=== PATIENT | male | born 1940 | race Caucasian/White ===

== ENCOUNTER 2019-04-26 02:26 | Inpatient (IN) | payer MEDICARE, BC ==
[~2019-04-26] VITALS: Ht 175.3 cm; Wt 102.1 kg
[2019-04-26 02:36] VITALS: BP 179/97
[2019-04-26] MEDS ORDERED: ASA81BEC PO (02:45)
[2019-04-26] MEDS ORDERED: CLOPIDOGREL75 MG PO (02:46)
[2019-04-26] MEDS ORDERED: FLOMAX0.4 MG PO (02:46)
[2019-04-26] MEDS ORDERED: CARVEDILOL25 MG PO (02:46)
[2019-04-26] MEDS ORDERED: LIPITOR40 MG PO (02:47)
[2019-04-26] MEDS ORDERED: CENTRUM SILVER1 EAC2 PO (02:47)
[2019-04-26 02:52] LABS: URINE BILIRUBIN NEGATIVE (Negative); URINE BLOOD NEGATIVE (Negative); URINE CLARITY CLEAR; URINE COLOR YELLOW; URINE GLUCOSE-RANDOM NEGATIVE (Negative); URINE KETONES NEGATIVE (Negative); URINE LEUKOCYTES-REFLEX NEGATIVE (Negative); URINE NITRITE-REFLEX NEGATIVE (Negative); URINE PROTEIN NEGATIVE (Negative); URINE UROBILINOGEN 0.2 E.U./dl (0.2-1.0)
[2019-04-26 02:52] LABS: ABSOLUTE EOSINOPHILS 0.2 thou/uL (0.0-0.7); ABSOLUTE LYMPHOCYTES 1.1 thou/uL (0.8-5.3); ABSOLUTE MONOCYTES 0.9 thou/uL (0.0-1.2); ABSOLUTE NEUTROPHILS 8.9 thou/uL (1.6-8.1); BASOPHILS 0.4 %; EOSINOPHILS 1.8 %; HEMATOCRIT 41.6 % (42.0-52.0); LYMPHOCYTES 9.7 %; MCH 29.8 pg (26.0-34.0); MCHC 33.7 g/dL (28.0-37.0); MCV 88.4 fL (80.0-100.0); MONOCYTES 8.5 %; MPV 9.1 fl. (7.2-11.1); NUCLEATED RBCS 0 /100WBC; PLATELET COUNT* 199 thou/uL (150-400); POLYS 79.6 %; RDW-CV 14.7 % (10.5-14.5); WBC 11.2 thou/uL (4.0-11.0)
[2019-04-26 03:01] LABS: CALCIUM 7.8 mg/dL (8.5-10.1); CREATININE 1.5 mg/dL (0.6-1.3); INR 1.1; POTASSIUM 4.1 mmol/L (3.5-5.1); PROTIME 11.6 Seconds (9.20-11.50)
[2019-04-26 03:05] LABS: ALBUMIN 2.7 g/dL (3.4-5.0); TOTAL BILIRUBIN 0.5 mg/dL (<0.1-1.0); TOTAL PROTEIN 6.9 g/dL (6.4-8.2)
[2019-04-26 07:43] VITALS: BP 163/95
[2019-04-26 09:23] VITALS: BP 168/111
[2019-04-26 10:53] LABS: CHOLESTEROL 133 mg/dL (<200); HDL CHOLESTEROL 32 mg/dL (>40); LDL CHOLESTEROL 91 mg/dL (<100); TC:HDL 4.2 Ratio (Not establshd); TRIGLYCERIDE 54 mg/dL (<150); VLDL 11 mg/dL (<40)
[2019-04-26 10:54] LABS: SERUM ASSESSMENT Clear
--- NOTE | 2019-04-26 14:00 | NUR ---
PT.SLEEPING SOUNDLY AFTER HAVING PAIN MEDS. DID NOT AWAKEN. CM WILL SEE TOMORROW.
[2019-04-26 15:32] VITALS: BP 168/111
--- NOTE | 2019-04-26 17:19 | EKG ---
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
--- NOTE | 2019-04-26 17:31 | EKG ---
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1940 Requested By: Haritha Abbott Order Number: [id number] MD: Arthur Jeffries Measurements Intervals [place] Rate: 96 P: 54 MS: 220 QRS: 14 QRSD: 110 T: -30 QT: 367 QTc: 464 Interpretive Statements Sinus rhythm Sinus pause Prolonged MS interval Inferior infarct, age indeterminate No previous ECG available for comparison Electronically Signed On 04-26-2019 17:30:46 FASTENER SEWING MACHINE OPERATOR by Arthur Jeffries [email or web address] <ELECTRONICALLY SIGNED> By: Arthur Jeffries MD, [facility] 04/26/19 1730 1139 1139 Arthur Jeffries MD, FAC /EPI
[2019-04-26 20:20] VITALS: BP 105/62
--- NOTE | 2019-04-26 20:21 | NUR ---
PATIENT ARRIVED TO UNIT AT APPROX 0740. ALERT AND ORIENTED X4. ADMISSION HISTORY AND ASSESSMENT COMPLETED AND CHARTED. VSS ON ROOM AIR. CHIEF COMPLAINT OF ABDOMINAL PAIN. NO COMPLAINTS OF NAUSEA. PATIENTS VERY FOCUSED ON THE PATIENTS PAIN, VISITED THE DESK NUMEROUS TIMES AND WENT INTO OTHER PAATIENTS ROOMS LOOKING FOR STAFF BEFORE I COULD GET INTO THE ROOM TO SEE THE PATIENT. EDUCATED THE PATIENTS THAT I CANNOT GIVE PAIN MEDICATION BASED ON HER PAIN ASSESSMENT, THE PATIENT HAS TO BE THE ONE TO CALL ME AND ASK FOR PAIN MEDICATION. EDUCATED THE PATIENT AND HIS ON HOW TO USE THE CALL LIGHT AND CALL FROM THE ROOM, RATHER THAN COMING UP TO THE DESK AND LOOKING IN OTHER PATIENTS ROOMS. PATIENTS SONS ARRIVED THIS AFTERNOON AND WERE UPDATED ON THE PLAN OF CARE. PATIENTS PAIN MANAGED WITH IV MORPHINE. FLUIDS INFUSED ORDERED. PATIENT UP AD VANNA IN THE ROOOM AND USING THE BATHROOM TO VOID. CALL LIGHT WITHIN REACH. HOURLY ROUNDS COMPLETED. NURSING WILL CONTINUE TO MONITOR.
[2019-04-27 04:39] LABS: HEMATOCRIT 39.5 % (42.0-52.0); MCH 29.3 pg (26.0-34.0); MCV 88.9 fL (80.0-100.0); MPV 9.7 fl. (7.2-11.1); RBC 4.45 mil/uL (4.50-6.00); RDW-CV 14.6 % (10.5-14.5); WBC 19.7 thou/uL (4.0-11.0)
[2019-04-27 05:07] LABS: CALCIUM 7.8 mg/dL (8.5-10.1); CREATININE 1.9 mg/dL (0.6-1.3); POTASSIUM 4.7 mmol/L (3.5-5.1)
--- NOTE | 2019-04-27 08:00 | NUR ---
PATIENT HAS SLEPT WELL THROUGHOUT THE NIGHT. VSS ON RA, ALTHOUGH SLIGHTLY ELEVATED TEMPERATURE. NOTIFIED OF SLIGHT ELEVATION IN TEMP. PATIENT UNDER COVERS AND ROOM WARM. PATIENT STATED HE FELT FINE AND DECLINED NEEDING TYLENOL. NO C/O PAIN DURING THE SHIFT. PATIENT STATED HE HAS HAD NO NAUSEA AND DECLINED NEEDING NAUSEA MEDICATION. IV IN RIGHT AC-LR @ 150ML/HR. IV ABT GIVEN WITHOUT ANY ADVERSE SIDE EFFECTS NOTED. PATIENT IS UP AD-VANNA AND STEADY. PATIENT INSTRUCTED TO USE CALL LIGHT WHEN NEEDING ASSISTANCE. HOURLY ROUNDS MADE. WILL CONTINUE WITH PLAN OF CARE AND NURSING TO MONITOR.
[2019-04-27 08:02] VITALS: BP 101/61
[2019-04-27 08:02] LABS: ALBUMIN 2.3 g/dL (3.4-5.0); DIRECT BILIRUBIN 0.4 mg/dL (<0.1-0.3); TOTAL BILIRUBIN 1.1 mg/dL (<0.1-1.0); TOTAL PROTEIN 6.2 g/dL (6.4-8.2)
[2019-04-27 14:16] LABS: ALBUMIN 2.1 g/dL (3.4-5.0); CALCIUM 7.3 mg/dL (8.5-10.1); CREATININE 1.9 mg/dL (0.6-1.3); POTASSIUM 4.3 mmol/L (3.5-5.1); TOTAL BILIRUBIN 1.2 mg/dL (<0.1-1.0); TOTAL PROTEIN 5.1 g/dL (6.4-8.2)
--- NOTE | 2019-04-27 16:27 | NUR ---
CM SPOKE WITH PT. HE WAS ALERT AND ORIENTED. HE LIVES WITH HIS . HE SAID SHE HAS SOME DEMENTIA. SONS ARE SUPPORTIVE. PT.USES NO DME. NO HX OF SNF OR HH. IS INDEPENDENT. PT.HAS ABNORMAL LABS. PER , HE DOES NOT WANT PT.DISCHARGED UNTIL THESE NORMALIZE.
[2019-04-27 16:49] VITALS: BP 99/55
--- NOTE | 2019-04-27 16:59 | NUR ---
PT A&Ox4. VITALS STABLE. IV PATENT, INFUSING. PAIN CONTROLLED WITH TYLENOL. DENIED N/V. ACCURATE I&O. PT SLEPT MOST OF SHIFT. TOLERATING FULL LIQUID DIET, ADVANCE TOLERATED. UP AD VANNA. FAMILY IN ROOM. CALL LIGHT WITHIN REACH. WILL CONTINUE TO MONITOR.
[2019-04-27 19:45] VITALS: BP 96/41
[2019-04-28 00:30] VITALS: BP 126/71
[2019-04-28 04:06] LABS: HEMATOCRIT 37.4 % (42.0-52.0); HEMOGLOBIN 12.3 gm/dL (14.0-18.0); MCH 29.1 pg (26.0-34.0); MCHC 32.9 g/dL (28.0-37.0); MCV 88.6 fL (80.0-100.0); MPV 9.5 fl. (7.2-11.1); RBC 4.23 mil/uL (4.50-6.00); RDW-CV 14.7 % (10.5-14.5); WBC 16.4 thou/uL (4.0-11.0)
--- NOTE | 2019-04-28 05:26 | NUR ---
PT SLEEPING THROUGH THE NIGHT. IV ABX GIVEN ORDERED. PT DENIED PAIN. NO N/V THIS SHIFT. IV FLUID RUNNING ORDERED. PT HAD SMALL BM THIS MORNING. HOURLY ROUNDING COMPLETED. WILL CONTINUE TO MONITOR.
[2019-04-28 08:00] VITALS: BP 137/75
[2019-04-28 10:23] LABS: ALBUMIN 1.9 g/dL (3.4-5.0); CALCIUM 7.8 mg/dL (8.5-10.1); CREATININE 1.7 mg/dL (0.6-1.3); POTASSIUM 3.9 mmol/L (3.5-5.1); TOTAL BILIRUBIN 0.8 mg/dL (<0.1-1.0); TOTAL PROTEIN 5.8 g/dL (6.4-8.2)
--- NOTE | 2019-04-28 18:47 | NUR ---
PT A&Ox4. VITALS STABLE. IV PATENT, INFUSING. DENIED PAIN. DENIED N/V. UP AD VANNA. 150 OUT IN URINE. VERY DROWSY DURING SHIFT. PT FAMILY IN ROOM MAJORITY OF THE DAY. CALL LIGHT WITHIN REACH. WILL CONTINUE TO MONITOR.
[2019-04-28 20:00] VITALS: BP 142/81
[2019-04-29 04:15] LABS: HEMATOCRIT 36.8 % (42.0-52.0); MCH 29.1 pg (26.0-34.0); MCHC 32.7 g/dL (28.0-37.0); MCV 89.1 fL (80.0-100.0); MPV 9.4 fl. (7.2-11.1); RBC 4.13 mil/uL (4.50-6.00); RDW-CV 14.5 % (10.5-14.5); WBC 13.2 thou/uL (4.0-11.0)
[2019-04-29 04:35] LABS: CALCIUM 7.8 mg/dL (8.5-10.1); CREATININE 1.5 mg/dL (0.6-1.3); POTASSIUM 3.6 mmol/L (3.5-5.1)
--- NOTE | 2019-04-29 07:48 | NUR ---
Alert and oriented x 4. He is up independently to the bathroom, he states that he is having diarrhea. He has voided at times in urinal but also at times in toilet he has had adequate urine output. Dr Noriega is going to do cholecystectomy on Thursday. He has been afebrile this shift.
[2019-04-29 07:50] VITALS: BP 114/77
--- NOTE | 2019-04-29 16:30 | NUR ---
SON,IRINA HANCOCK, HERE EARLIER ASKING WHAT TIME DAD'S SURGERY WAS TOMORROW. CM CALLED PACU. CHUCHO SAID IT WAS NOT ON SCHEDULE YET. THE HAD NOT CALLED IT IN. TOLD SON THIS AND ASKED HIM TO CALL BACK ABOUT 4:30. HE DID CALL BACK BUT NO TIME AVAILABLE YET. TOLD HIM TO CALL FIRST THING IN AM AND HOPEFULLY THEY WOULD KNOW. SHORTLY AFTER HANGING UP WITH SON, JACINTO LOO SAID THEY HAD CALLED HER WITH A SURGERY TIME. SHE SAID SHE WOULD CALL SON BACK.
--- NOTE | 2019-04-29 18:43 | NUR ---
ASSUMED CARE OF PATIENT AT APPROX 0730. ALERT AND ORIENTED X4. ASSESSMENT COMPLETED AND CHARTED. VSS ON ROOM AIR. NO COMPLAINTS OF PAIN, NAUSEA OR SOA THIS SHIFT. FLUIDS AND ANTIBIOTICS INFUSED ORDERED. PATIENT UP AD VANNA IN THE ROOM. I&0 RECORDED WELL POSSIBLE, FAMILY EDUCATED ON IMPORTANCE OF STAFF EMPTYING PATIENTS URINALS SO A RECORD CAN BE DOCUMENTED. NO OTHER COMPLAINTS THIS SHIFT. CALL LIGHT WITHIN REACH. HOURLY ROUNDS COMPLETED. NURSING WILL CONTINUE TO MONITOR.
[2019-04-29 20:30] VITALS: BP 145/82
[2019-04-30 04:32] LABS: ABSOLUTE EOSINOPHILS 0.1 thou/uL (0.0-0.7); ABSOLUTE NEUTROPHILS 9.9 thou/uL (1.6-8.1); BASOPHILS 0.2 %; EOSINOPHILS 0.8 %; HEMATOCRIT 37.3 % (42.0-52.0); HEMOGLOBIN 12.4 gm/dL (14.0-18.0); MCH 29.3 pg (26.0-34.0); MCHC 33.4 g/dL (28.0-37.0); MCV 87.9 fL (80.0-100.0); MONOCYTES 8.2 %; NUCLEATED RBCS 0 /100WBC; PLATELET COUNT* 217 thou/uL (150-400); POLYS 82.8 %; RBC 4.24 mil/uL (4.50-6.00); RDW-CV 14.5 % (10.5-14.5)
[2019-04-30 05:30] LABS: CALCIUM 8.1 mg/dL (8.5-10.1); CREATININE 1.4 mg/dL (0.6-1.3); MAGNESIUM 1.9 mg/dL (1.8-2.4); POTASSIUM 3.4 mmol/L (3.5-5.1)
--- NOTE | 2019-04-30 05:46 | NUR ---
PATIENT HAS SLEPT WELL THROUGHOUT THE NIGHT. VSS ON RA. NO C/O PAIN. PATIENT HAS REMAINED NPO SINCE MIDNIGHT. IV IN RIGHT FOREARM-LR @ 100ML/HR. IV ABT GIVEN WITHOUT ANY ADVERSE SIDE EFFECTS NOTED. CONSENT SIGNED FOR PROCEDURE SCHEDULED TODAY. PATIENT INSTRUCTED TO USE CALL LIGHT WHEN NEEDING ASSISTANCE. HOURLY ROUNDS MADE. WILL CONTINUE WITH PLAN OF CARE AND NURSING TO MONITOR.
[2019-04-30 05:49] VITALS: BP 145/82
[2019-04-30 07:35] VITALS: BP 122/78
--- NOTE | 2019-04-30 16:43 | NUR ---
PT REMAINED ALERT AND ORIENTED. PT RETURNED FROM SURGERY. PT ON CAPNO, LUNGS CLEAR AND DIMINISHED. DRESSING TO ABD C/D/I. AUTUMN DRAIN IN PLACE. PAIN MEDS GIVEN ORDERED. FALL RISK PRECAUTIONS IN PLACE. HOURLY ROUNDING COMPLETED. WILL CONTINUE TO MONITOR.
[2019-04-30 19:45] VITALS: BP 139/86
[2019-05-01 00:13] VITALS: BP 147/83
[2019-05-01 03:44] VITALS: BP 144/79
[2019-05-01 04:17] LABS: HEMATOCRIT 37.6 % (42.0-52.0); HEMOGLOBIN 12.3 gm/dL (14.0-18.0); MCH 29.1 pg (26.0-34.0); MCHC 32.8 g/dL (28.0-37.0); MCV 88.9 fL (80.0-100.0); MPV 8.8 fl. (7.2-11.1); RBC 4.23 mil/uL (4.50-6.00); WBC 11.2 thou/uL (4.0-11.0)
--- NOTE | 2019-05-01 04:20 | NUR ---
PATIENT HAS REMAINED ALERT AND ORIENTED X 4 THROUGHOUT THE SHIFT AND RESTING QUIETLY ON HOURLY ROUNDS. STANDING AT BEDSIDE TO VOID WITH ADEQUATE OUTPUT FOR SHIFT. SUPINE TO STAND WITH SUPERVISION. LAP SITES TO ABDOMEN AND AUTUMN DRAIN DRESSING CLEAN AND DRY. HAS DENIED NAUSEA WITH CLEAR LIQUIDS OVERNIGHT. MEDICATED X 1 OF THIS WRITING TO GOOD EFFECT. IVF'S AND ANTIBIOTICS PER ORDER. VITAL SIGNS STABLE ON O2 3L/MIN AND CONTINUOUS CAPNOGRAPHY. CONTINUE TO MONITOR.
[2019-05-01 04:45] LABS: ALBUMIN 1.9 g/dL (3.4-5.0); CALCIUM 7.9 mg/dL (8.5-10.1); CREATININE 1.4 mg/dL (0.6-1.3); MAGNESIUM 1.9 mg/dL (1.8-2.4); PHOSPHORUS* 4.5 mg/dL (2.5-4.9); POTASSIUM 3.9 mmol/L (3.5-5.1); TOTAL BILIRUBIN 0.4 mg/dL (<0.1-1.0); TOTAL PROTEIN 6.2 g/dL (6.4-8.2)
[2019-05-01 07:20] VITALS: BP 135/68
[2019-05-01 17:01] VITALS: BP 117/72
--- NOTE | 2019-05-01 17:01 | NUR ---
PT REMAINED ALERT AND ORIENTED. PT RESTING IN ROOM. PT UP WALKING IN ROOM AND UP TO BATHROOM. FALL RISK PRECAUTIONS IN PLACE. HOURLY ROUNDING COMPLETED. WILL CONTINUE TO MONITOR.
[2019-05-01 20:08] VITALS: BP 106/52
[2019-05-02] VITALS: BP 143/83
[2019-05-02 04:42] VITALS: BP 134/80
--- NOTE | 2019-05-02 04:48 | NUR ---
PATIENT HAS REMAINED ALERT AND ORIENTED X 4 THROUGHOUT THE SHIFT AND RESTING QUIETLY ON HOURLY ROUNDS. UP SBA. TURNS BY SELF. ABD DRESSINGS CLEAN AND DRY WITH AUTUMN DRAIN PRESENT AND PATENT WITH MIN SEROSANGUIEOUS DRAINAGE. STATES HAS PASSED SOME GAS. NO NAUSEA. MEDICATED X 2 FOR PAIN TO GOOD EFFECT. IVF'S AND ANTIBIOTICS PER ORDER. VITAL SIGNS STABLE. CONTINUE TO MONITOR.
[2019-05-02 05:07] LABS: HEMOGLOBIN 11.6 gm/dL (14.0-18.0); MCH 29.2 pg (26.0-34.0); MCHC 33.1 g/dL (28.0-37.0); MCV 88.3 fL (80.0-100.0); MPV 8.4 fl. (7.2-11.1); RBC 3.97 mil/uL (4.50-6.00); RDW-CV 15.1 % (10.5-14.5); WBC 10.2 thou/uL (4.0-11.0)
[2019-05-02 05:29] LABS: ALBUMIN 1.8 g/dL (3.4-5.0); CALCIUM 7.9 mg/dL (8.5-10.1); CREATININE 1.5 mg/dL (0.6-1.3); POTASSIUM 3.7 mmol/L (3.5-5.1); TOTAL BILIRUBIN 0.3 mg/dL (<0.1-1.0); TOTAL PROTEIN 5.7 g/dL (6.4-8.2)
[2019-05-02 08:45] VITALS: BP 137/81
[2019-05-02 13:24] VITALS: BP 168/111
[2019-05-02 13:32] VITALS: BP 168/111
[2019-05-02] MEDS ORDERED: OXYCODONE HCL 55 MG PO (15:01)
--- NOTE | 2019-05-02 19:37 | NUR ---
I ASSUMED CARE OF THE PATIENT AT 0700. HE IS ALERT AND ORIENTED BUT FORGETFUL. IS AT THE BEDSIDE AND SEEMS TO BE CONFUSED ABOUT FOLLOW UP CARE. BED IS IN THE LOW LOCKED POSITION AND CALL LIGHT IS IN REACH. HOURLY ROUNDING IS COMPLETED AND PATIENT NEEDS ARE MET. PAIN IS MANAGED WITH PRN MEDS. SON IS IN THE WAITING ROOM WORKING. HE IS PROGRESSING TOWARDS GOALS. LAP SITES ARE C/D/I. HE IS TOLERATING HIS MEALS AND ONLY COMPLAINT IS BELCHING. HE IS DISCHARGED TO HOME WITH FAMILY AT 1615. SCRIPTS ARE GIVEN AND PATIENT AND SON UNDERSTAND DISCHARGE. HE IS D/C'D WITH AUTUMN DRAIN AND IT WILL BE REMOVED IN THE OFFICE NEXT WEEK AT HIS FOLLOW UP. PATIENT IS EDUCATED ON DRAINAGE AND PROPER WAYS TO HANG DRAIN.
--- NOTE | 2019-05-03 17:33 | OP ---
[address] [address] OPERATIVE REPORT Name: AVA HANCOCK Room: [address] IN M.R.#: [id number] Admission: 04/26/19 Attend Phys: Nina Kaur MD Discharge: 05/02/19 Date of : 40 Report #: [id number] THIS REPORT FOR: //name// CC: CECILIA physician/PCP Nina Kaur DATE OF SERVICE: 04/30/2019 SURGEON: Dr. Isidro Sheppard. FURNITURE DELIVERY DRIVER: Dr. Emanuel Morton. PREOPERATIVE DIAGNOSIS: Acute cholecystitis. POSTOPERATIVE DIAGNOSIS: Acute cholecystitis. PROCEDURE: Laparoscopic cholecystectomy. INDICATION: The patient presented to [facility] on 04/26/2019 with abdominal pain. History of present illness and abdominal imaging confirmed acute cholecystitis. OPERATIVE INDICATION: Operative intervention was indicated. He was on Plavix for his cardiac history and so this was discontinued with permission from the Cardiology Service. He remained on aspirin during his hospital stay. After 5 days without Plavix, he was taken to the operating room. Risks and benefits of surgery including bleeding, infection, damage to nearby structures including the common bile duct, DVT, stroke, TX and were explained in detail. All questions were answered. The patient agreed to proceed with surgery. OPERATIVE DESCRIPTION: The patient was taken to the operating room theater and placed in the supine position. General anesthesia was induced without complication. Bilateral SCDs were placed and he was on preoperative antibiotics. A timeout was performed and all were in agreement. The patient's abdomen was prepped and draped in the standard sterile fashion. A supraumbilical incision was made using an 11 blade scalpel through the skin. The subcutaneous tissue was dissected using electrocautery down to the midline fascia. Midline fascia was entered using the electrocautery device. The peritoneum was then entered bluntly using a hemostat. Two stay sutures of 0 Vicryl were used on the fascial edges. A Randall trocar was placed. The camera was inserted and the patient was placed in the reverse Trendelenburg to the left position. Next, a subxiphoid 5 mm trocar was placed under direct visualization. Thereafter, two right subcostal ports were placed 2 cm below the costal margin under direct visualization. The patient had a significant amount of inflammatory disease in his right upper quadrant. The omentum, colon and stomach were adhesed to his gallbladder. Once [place] [address] OPERATIVE REPORT Name: AVA HANCOCK ROBY Room: [address]#: [id number] Admission: 04/26/19 Attend Phys: Nina Kaur MD Discharge: 05/02/19 Date of : 40 Report #: [id number] a blunt grasper, the top of the fundus could be appreciated. The gallbladder was edematous with a thickened wall. A very careful dissection was carried out using a blunt grasper and a suction device peeling the adhesions away from the gallbladder. The gallbladder was drained using a needle so that it could be further grasped. Blunt dissection was carried out until Lorenzo's pouch was appreciated. This was elevated out of the inflammatory mass using a blunt grasper. There appeared to be one structure entering the gallbladder, going towards Lorenzo's pouch. This was clipped on the gallbladder side and a ductotomy was performed using EndoShears. An Arrow kit was used to cannulate the cut structure in an attempt to perform a cholangiogram. Unfortunately, after multiple attempts, the contrast would not stay in the structure. Next, a Sanchez clamp was used to attempt a cholangiography and this again was unsuccessful. After multiple attempts with 2 different methods, the cholangiogram was aborted. The cystic duct, the only structure entering the gallbladder was cut near the gallbladder and two Endoloops were placed around the cystic duct. The gallbladder was then removed off of the gallbladder fossa using electrocautery. Due to the massive amount of inflammation part of the superior back wall of the gallbladder was left on the gallbladder fossa. The abdomen was irrigated and the gallbladder was removed using an EndoCatch device. Due to the significant amount of inflammation, a drain was placed. A 15-Upper Sorbian round AUTUMN drain was placed through the most lateral trocar and placed into the gallbladder fossa. This was secured to the skin with the 2-0 nylon. The liver appeared hemostatic. There were no signs of bile and the trocars were removed under direct visualization. The midline fascia was closed using 2-0 Vicryl sutures in a [id number] fashion. All port sites were closed using 4-0 Monocryl and dressed. This concluded the procedure. All sponge, needle and instrument counts were correct x 2. ESTIMATED BLOOD LOSS: 25 mL. SPECIMENS: Gallbladder. COMPLICATIONS: Inability to remove the entire gallbladder due to acute inflammation. DRAINS: AUTUMN 15-Upper Sorbian. ANESTHESIA: General endotracheal anesthesia. DISPOSITION: The patient was extubated in the operating room and taken to PACU in stable condition. <ELECTRONICALLY SIGNED> By: Isidro Sheppard DO 05/03/19 1733 1608 2029Joshkathy Sheppard DO /nt
--- NOTE | 2019-05-04 17:06 | PATH ---
[facility] [address] [place] [address] PATHOLOGY RPT PROCEDURE Name: AVA HANCOCK Room: [address] IN M.R.#: [id number] Admission: 04/26/19 Date of : 40 Discharge: 05/02/19 Report #: [id number] Path Case #: [id number] [facility] Accession Number: [id number] . 01 Material submitted: . gallbladder - GALLBLADDER . 01 Clinical history: . Pre-op diagnosis: Cholecystitis, cholelithiasis Post-op diagnosis: Acute cholecystitis . 02 Diagnosis: Gallbladder: - Chronic and acute gangrenous cholecystitis. See comment. LBQ 05/04/2019 1531 Local . 02 Comment: No gallstones were identified in the submitted specimen. (NOAH/db; 05/04/2019) . 02 Electronically signed: . Steven Teague MD, Pathologist NPI- [id number] . 01 Gross description: . The specimen is received in formalin, labeled "nikki Ruvalcaba". Received is a previously opened/torn gallbladder measuring 8.9 x 5.1 x 2.0 cm in greatest dimensions displaying a dusky pink-mendoza to mendoza-green serosal surface. Opening the specimen reveals a light green and moderately shaggy mucosa with a gallbladder wall thickness of 0.1 cm. Gallstones are not present upon filtration of the gallbladder and specimen container. No distinct nodules or lesions are noted grossly. Partridge Farmer sections, to include the proximal margin, are submitted in cassette A1. (CAA; 05/03/2019) QAC/QAC 05/04/2019 1529 Local . 02 Pathologist provided ICD-10: K81.2 . 02 CPT . 954622 Specimen Comment: A courtesy copy of this report has been sent to [phone] Specimen Comment: [id number] Specimen Comment: Report sent to / DR HINKLE Performed at: [address] [place] [address] PATHOLOGY RPT PROCEDURE Name: HENNA HANCOCKCHULAZoë ROBY Room: [address] IN M.R.#: [id number] Admission: 04/26/19 Date of : 40 Discharge: 05/02/19 Report #: [id number] Path Case #: [id number] [address] [facility] [address], [place] [id number] MD Tenizn Gil MD Phone: [phone] Performed at: 02 [facility] [address], [place], [place] [id number] MD Steven Teague MD Phone: [phone]
== END 2019-05-02 16:17 | disposition home or self-care (01) | DRG 417 ==
LOC: M.ERS 02:26 → M.TBA-ER 05:27 → M.ORTHSURG 05:27
PROVIDERS: Emergency Medicine; Family Medicine; Internal Medicine; Surgery; ADMIT Internal Medicine
PROC: BF121ZZ Fluoroscopy of Gallbladder using Low Osmolar Contrast (ICD-10-PCS; principal; 2019-04-30)
PROC: 0FT44ZZ Resection of Gallbladder, Percutaneous Endoscopic Approach (ICD-10-PCS; principal; 2019-04-30)
DX: K80.00 Calculus of gallbladder with acute cholecystitis without obstruction (principal); R65.11 Systemic inflammatory response syndrome (SIRS) of non-infectious origin with acute organ dysfunction; N17.9 Acute kidney failure, unspecified; I12.9 Hypertensive chronic kidney disease with stage 1 through stage 4 chronic kidney disease, or unspecified chronic kidney disease; N40.0 Benign prostatic hyperplasia without lower urinary tract symptoms; E78.5 Hyperlipidemia, unspecified; I25.10 Atherosclerotic heart disease of native coronary artery without angina pectoris; N18.3 Chronic kidney disease, stage 3 (moderate); I71.2 Thoracic aortic aneurysm, without rupture; D72.829 Elevated white blood cell count, unspecified; Z95.5 Presence of coronary angioplasty implant and graft; Z79.82 Long term (current) use of aspirin; Z79.899 Other long term (current) drug therapy; I25.2 Old myocardial infarction